=== PATIENT | male | born 2000 | race African-American/Black ===

== ENCOUNTER 2023-12-24 23:45 | Emergency (ER) | payer MEDICAID ==
[~2023-12-24] VITALS: Ht 180.3 cm; Wt 82.8 kg
[2023-12-24 23:47] VITALS: O2SAT 98
[2023-12-25 00:14] LABS: BASOPHILS % 0.3 % (0.0-2.0); EOSINOPHILS % 0.4 % (0.0-5.0); HEMATOCRIT. 46.5 % (42.0-52.0); HEMOGLOBIN. 15.2 g/dL (14.0-18.0); LYMPHOCYTES % 15.7 % (20.0-50.0); MEAN CORPUSCULAR HEMOGLOBIN 28.5 pg (28.0-32.0); MEAN CORPUSCULAR HGB CONC 32.8 g/dL (31.0-37.0); MEAN PLATELET VOLUME 9.1 fl (7.4-10.4); MONOCYTES % 4.2 % (2.0-8.0); NEUTROPHILS % 79.4 % (40.0-76.0); PLATELET 223 x1000/uL (130-400); RED BLOOD CELL COUNT 5.34 mill/uL (4.7-6.1); RED CELL DISTRIBUTION WIDTH 13.8 % (11.6-14.6); WHITE BLOOD COUNT 10.3 x1000/uL (4.5-11.0)
[2023-12-25 00:16] LABS: CHLORIDE 105 mEq/L (98-107); POTASSIUM 3.7 mEq/L (3.5-5.1); SODIUM 139 mEq/L (136-145)
[2023-12-25 00:17] LABS: CARBON DIOXIDE 27 mEq/L (21-32)
[2023-12-25 00:18] LABS: CALCIUM 9.7 mg/dL (8.7-10.4)
[2023-12-25 00:22] LABS: CREATININE 1.1 mg/dL (0.6-1.3); GLUCOSE 118 mg/dL (70-105); UREA NITROGEN BLOOD 12 mg/dL (9-23)
[2023-12-25] MEDS: KETOROLAC 30MG/ML VIAL IV STA (00:50)
[2023-12-25] MEDS: ONDANSETRON HCL 4MG/2ML INJ IV STA (00:50)
[2023-12-25] MEDS: FAMOTIDINE 20MG/2ML VIAL IV ONE (01:00)
[2023-12-25 01:12] LABS: ALANINE AMINOTRANSFERASE 11 IU/L (10-49); ASPARTATE AMINOTRANSFERASE 15 IU/L (<34)
[2023-12-25 01:13] LABS: ALBUMIN 4.5 g/dL (3.2-4.8); BILIRUBIN DIRECT 0.5 mg/dL (<=3.0); BILIRUBIN TOTAL 1.6 mg/dL (0.1-1.0); PROTEIN TOTAL 8.2 g/dL (6.0-8.3)
[2023-12-25] MEDS: SODIUM CHLORIDE 0.9% 1,000 ML IV ONE (03:51)
[2023-12-25] MEDS: ONDANSETRON HCL 4MG/2ML INJ IV NR (03:51)
[2023-12-25] MEDS: FAMOTIDINE 20MG/2ML VIAL IV NR (03:51)
[2023-12-25] MEDS: KETOROLAC 30MG/ML VIAL IV NR (03:51)
[2023-12-25 06:30] VITALS: BP 135/71; PULSE 60; RESP 13; TEMP 37.22520; O2SAT 100
[2023-12-25] MEDS ORDERED: IPRATROPIUM/ALBUTEROL 0.5-3(2.5)MG/3ML NEB NEB PRN (07:45)
[2023-12-25] MEDS ORDERED: NITROGLYCERIN 0.4MG TABLET SL SL PRN (07:45)
[2023-12-25] MEDS ORDERED: ACETAMINOPHEN 325MG TABLET PO PRN ×2 (07:45)
[2023-12-25] MEDS ORDERED: ONDANSETRON HCL 4MG/2ML INJ IV PRN (07:45)
[2023-12-25] MEDS ORDERED: MAGNESIUM/ALUMINUM HYDROXIDE/SIMETHICONE 30ML UDC PO PRN (07:45)
[2023-12-25] MEDS ORDERED: GUAIFENESIN 200MG/10ML SUGAR FREE UDC PO PRN (07:45)
[2023-12-25] MEDS ORDERED: CLONIDINE 0.1MG TABLET PO PRN (07:45)
[2023-12-25] MEDS ORDERED: DOCUSATE SODIUM 100MG CAPSULE PO PRN (07:45)
[2023-12-25] MEDS ORDERED: LACTATED RINGERS 1,000 ML IV SCH (08:00)
[2023-12-25] MEDS ORDERED: SUCRALFATE 1G TABLET PO SCH (09:00)
[2023-12-25] MEDS ORDERED: PANTOPRAZOLE SODIUM 40 MG/VIAL IV SCH (09:00)
[2023-12-25] MEDS ORDERED: ZOLPIDEM TARTRATE 5MG TABLET PO PRN (21:00)
== END 2023-12-25 09:28 | disposition left against medical advice (07) ==
LOC: ER 23:45 → CANBEDREQ 12-25 09:23 → ER 12-25 09:28
DX: R10.84 Generalized abdominal pain (principal); R53.1 Weakness; F12.10 Cannabis abuse, uncomplicated
CPT/HCPCS: 80076; 80048; 83690; 85025; 36415; 93005; 99285; 74176; 76705; 96361; 96374; 96375; J3490; J1885; J2405; J7030; Z7610 ×4